=== PATIENT | female | born 1995 | race Caucasian/White ===

== ENCOUNTER 2020-01-19 14:03 | Outpatient (CLI) | payer OTHER, MEDICAID, SELFPAY ==
--- NOTE | 2020-01-19 14:15 | US_ITS ---
WS: [id number] US transvaginal [id number] REASON FOR EXAM: IUD placement FINDINGS: The uterus shows an enteral flexion along the endometrial stripe consistent with an IUD. Both ovaries show multiple's follicles the left ovary shows a cyst measures 1.32 x 1.0 x 1.18 cm The uterus measures 7.53 x 3.42 x 5.56 cm. The endometrium measures 0.19 cm.. IMPRESSION: Intrauterine device is seen along the mid endometrial stripe. The uterus is of normal size. Multiple follicles both ovaries with a small cyst of the left ovary.
== END 2020-01-19 14:04 | disposition home or self-care (01) ==
LOC: RAD 14:08
PROVIDERS: Family Provider Nurse Practitioner Family; Visit Provider Obstetrics & Gynecology
DX: T83.32XA Displacement of intrauterine contraceptive device, initial encounter (principal); X58.XXXA Exposure to other specified factors, initial encounter; N83.202 Unspecified ovarian cyst, left side
CPT/HCPCS: 76830

== ENCOUNTER → 2020-05-24 09:33 | Outpatient (BNVA) | payer OTHER, MEDICAID, SELFPAY | PROVIDERS: Family Provider Nurse Practitioner Family; Visit Provider Nurse Practitioner Women's Health | DX: N92.1 Excessive and frequent menstruation with irregular cycle (principal); Z97.5 Presence of (intrauterine) contraceptive device; R10.2 Pelvic and perineal pain | CPT/HCPCS: 84702; 87491; 87591; 87661 ==

== ENCOUNTER → 2020-06-07 09:44 | Outpatient (BNVA) | payer OTHER, MEDICAID, SELFPAY | PROVIDERS: Family Provider Nurse Practitioner Family; Visit Provider Nurse Practitioner Women's Health | DX: N91.2 Amenorrhea, unspecified (principal); N85.2 Hypertrophy of uterus | CPT/HCPCS: 76830 ==

== ENCOUNTER → 2020-10-31 13:37 | Outpatient (BNVA) | payer OTHER, MEDICAID, SELFPAY | PROVIDERS: Family Provider Nurse Practitioner Family; Visit Provider Obstetrics & Gynecology | DX: N92.1 Excessive and frequent menstruation with irregular cycle (principal); R10.2 Pelvic and perineal pain; Z97.5 Presence of (intrauterine) contraceptive device | CPT/HCPCS: 81025 ==

== ENCOUNTER → 2020-11-28 12:54 | Outpatient (BNVA) | payer OTHER, MEDICAID, SELFPAY | PROVIDERS: Family Provider Nurse Practitioner Family; Visit Provider Obstetrics & Gynecology | DX: Z34.80 Encounter for supervision of other normal pregnancy, unspecified trimester (principal) | CPT/HCPCS: 85025; 86850; 86900 ==

== ENCOUNTER → 2020-11-29 15:21 | Outpatient (BNVA) | payer OTHER, MEDICAID, SELFPAY | PROVIDERS: Family Provider Nurse Practitioner Family; Visit Provider Obstetrics & Gynecology | DX: O23.599 Infection of other part of genital tract in pregnancy, unspecified trimester (principal); N89.8 Other specified noninflammatory disorders of vagina; B96.89 Other specified bacterial agents as the cause of diseases classified elsewhere; O23.591 Infection of other part of genital tract in pregnancy, first trimester; Z3A.01 Less than 8 weeks gestation of pregnancy | CPT/HCPCS: 84315; 87491; 87591 ==

== ENCOUNTER → 2020-12-14 07:51 | Outpatient (BNVA) | payer OTHER, MEDICAID, SELFPAY | PROVIDERS: Family Provider Nurse Practitioner Family; Visit Provider Obstetrics & Gynecology | DX: O21.9 Vomiting of pregnancy, unspecified; Z3A.00 Weeks of gestation of pregnancy not specified | CPT/HCPCS: 82950; 84315 ==

== ENCOUNTER → 2021-01-02 12:05 | Outpatient (BNVA) | payer OTHER, MEDICAID, SELFPAY | PROVIDERS: Family Provider Nurse Practitioner Family; Visit Provider Obstetrics & Gynecology | DX: Z34.80 Encounter for supervision of other normal pregnancy, unspecified trimester (principal) | CPT/HCPCS: 80307; 81000; 86592; 86762; 86803; 87086; 87340; 87806; 88175 ==

== ENCOUNTER → 2021-01-31 13:40 | Outpatient (BNVA) | payer OTHER, MEDICAID, SELFPAY | PROVIDERS: Family Provider Nurse Practitioner Family; Visit Provider Nurse Practitioner Women's Health | DX: O09.299 Supervision of pregnancy with other poor reproductive or obstetric history, unspecified trimester (principal); Z3A.00 Weeks of gestation of pregnancy not specified | CPT/HCPCS: 82105; 84315 ==

== ENCOUNTER 2021-03-15 11:15 | Outpatient (CLI) | payer OTHER, MEDICAID, SELFPAY ==
[2021-03-15 11:38] VITALS: BP 127/78; PULSE 76; TEMP 36.4
[2021-03-15 11:52] VITALS: RESP 17
[2021-03-15 11:53] VITALS: BMI 28.0
== END 2021-03-15 12:05 | disposition home or self-care (01) ==
LOC: OPOB 11:20 → OBGYN 11:21
PROVIDERS: Family Provider Nurse Practitioner Family; Visit Provider Obstetrics & Gynecology
DX: O26.899 Other specified pregnancy related conditions, unspecified trimester (principal); Z3A.00 Weeks of gestation of pregnancy not specified; M54.9 Dorsalgia, unspecified
CPT/HCPCS: 99211

== ENCOUNTER → 2021-04-19 12:45 | Outpatient (BNVA) | payer OTHER, MEDICAID, SELFPAY | PROVIDERS: Family Provider Nurse Practitioner Family; Visit Provider Obstetrics & Gynecology | DX: Z34.80 Encounter for supervision of other normal pregnancy, unspecified trimester (principal) | CPT/HCPCS: 82950; 84315; 85027 ==

== ENCOUNTER → 2021-05-04 14:17 | Outpatient (BNVA) | payer OTHER, MEDICAID, SELFPAY | PROVIDERS: Family Provider Nurse Practitioner Family; Visit Provider Obstetrics & Gynecology | DX: O09.299 Supervision of pregnancy with other poor reproductive or obstetric history, unspecified trimester; Z3A.00 Weeks of gestation of pregnancy not specified | CPT/HCPCS: 84315; 87086 ==

== ENCOUNTER 2021-05-29 09:10 | Outpatient (CLI) | payer OTHER, MEDICAID, SELFPAY ==
[2021-05-29 09:10] VITALS: BMI 31.3
[2021-05-29 09:27] VITALS: BP 131/82; PULSE 92; TEMP 37.2
[2021-05-29 09:33] VITALS: RESP 17
[2021-05-29 09:43] VITALS: BP 130/82; PULSE 92
[2021-05-29 09:58] VITALS: BP 128/78; PULSE 94
[2021-05-29 10:56] LABS: Bilirubin Urine Neg (Negative); Blood Urine Neg (Negative); Glucose Urine UA Norm (Normal); Ketones Urine Negative (Negative); Leukocyte Esterase Urine Negative (Negative); Nitrate Urine Negative (Negative); Protein Urine Neg (Negative); Specific Gravity, Urine 1.015 (1.005-1.030); Sulfosalicylic Acid Urine Negative (Negative); Urine Appearance Clear (CLEAR); Urine Color Yellow (Yellow); Urobilinogen Urine Norm (Negative); pH Urine 8 (5-7)
[2021-05-29 11:04] LABS: Add Urine Culture? No; Bacteria Urine 1+ /hpf; RBC Urine 0-4 /hpf (0-2); Squamous Epithelial Cell Urine 15-25 /hpf (0-5)
== END 2021-05-29 10:22 | disposition home or self-care (01) ==
LOC: OPOB 09:22 → OBGYN 09:23
PROVIDERS: Family Provider Nurse Practitioner Family; Visit Provider Obstetrics & Gynecology
DX: O26.899 Other specified pregnancy related conditions, unspecified trimester (principal); Z3A.00 Weeks of gestation of pregnancy not specified; R10.9 Unspecified abdominal pain
CPT/HCPCS: 59025; 81001; 99211

== ENCOUNTER → 2021-06-14 12:36 | Outpatient (BNVA) | payer OTHER, MEDICAID, SELFPAY | PROVIDERS: Family Provider Nurse Practitioner Family; Visit Provider Obstetrics & Gynecology | DX: O99.119 Other diseases of the blood and blood-forming organs and certain disorders involving the immune mechanism complicating pregnancy, unspecified trimester (principal); D69.6 Thrombocytopenia, unspecified | CPT/HCPCS: 84315; 85027; 87081 ==

== ENCOUNTER 2021-06-23 15:36 | Outpatient (CLI) | payer OTHER, MEDICAID, SELFPAY ==
[2021-06-23] VITALS (9 sets, daily range): BP systolic 128–139; BP diastolic 84–93; PULSE 85–106; RESP 18; TEMP 36.9; BMI 31.6
[2021-06-23] MEDS: hyDROXYzine 25 mg Capsule 50 MG PO (16:29)
[2021-06-23] MEDS: cyclobenzaprine 10 mg Tablet PO (16:29)
[2021-06-23 16:43] LABS: Urine Color Straw (Yellow); pH Urine 7 (5-7)
[2021-06-23 16:44] LABS: Add Urine Culture? No; Amorphous Sediment Urine 1+ /hpf; Bacteria Urine 2+ /hpf; Bilirubin Urine Neg (Negative); Blood Urine Neg (Negative); Glucose Urine UA Norm (Normal); Ketones Urine Negative (Negative); Leukocyte Esterase Urine Negative (Negative); Mucus Urine TRACE /hpf; Nitrate Urine Negative (Negative); Protein Urine Neg (Negative); Specific Gravity, Urine 1.005 (1.005-1.030); Squamous Epithelial Cell Urine 15-25 /hpf (0-5); Urine Appearance SL Hazy (CLEAR); Urobilinogen Urine Norm (Negative); WBC Urine 0-4 /hpf (0-5)
== END 2021-06-23 17:30 | disposition home or self-care (01) ==
LOC: OPOB 15:42 → OBGYN 15:43
PROVIDERS: Family Provider Nurse Practitioner Family; Visit Provider Obstetrics & Gynecology
DX: O99.891 Other specified diseases and conditions complicating pregnancy (principal); M54.9 Dorsalgia, unspecified
CPT/HCPCS: 59025; 81001; 87086; 99211

== ENCOUNTER 2021-06-26 19:20 | Outpatient (CLI) | payer OTHER, MEDICAID, SELFPAY ==
[2021-06-26] VITALS (8 sets, daily range): BP systolic 130–145; BP diastolic 81–90; PULSE 89–106; TEMP 36.2; BMI 31.8
[2021-06-26 20:25] LABS: Actim Prom Negative
== END 2021-06-26 20:43 | disposition home or self-care (01) ==
LOC: OPOB 19:24 → OBGYN 19:25
PROVIDERS: Family Provider Nurse Practitioner Family; Visit Provider Obstetrics & Gynecology
DX: O99.891 Other specified diseases and conditions complicating pregnancy (principal); V89.2XXA Person injured in unspecified motor-vehicle accident, traffic, initial encounter; Z03.71 Encounter for suspected problem with amniotic cavity and membrane ruled out
CPT/HCPCS: 59025; 84112; 99211

== ENCOUNTER → 2021-06-27 09:56 | Outpatient (BNVA) | payer OTHER, MEDICAID, SELFPAY | PROVIDERS: Family Provider Nurse Practitioner Family; Visit Provider Obstetrics & Gynecology | DX: Z34.90 Encounter for supervision of normal pregnancy, unspecified, unspecified trimester (principal) | CPT/HCPCS: 80053; 82570; 84156; 84315; 84550; 85025 ==

== ENCOUNTER 2021-06-30 12:58 | Outpatient (CLI) | payer OTHER, MEDICAID, SELFPAY ==
[2021-06-30] VITALS (36 sets, daily range): BP systolic 130–142; BP diastolic 81–92; PULSE 81–107; RESP 18; O2SAT 97–100; BMI 31.3
--- NOTE | 2021-06-30 13:45 | US_ITS ---
WS: [id number] ULTRASOUND OB LIMITED TECHNIQUE: Limited ultrasound examination of the fetus. CLINICAL INFORMATION: High blood pressure COMPARISON: May 17, 2021 FINDINGS: Cervix measures 3.9 cm Single interuterine ges can tation. presentation is cephalic Placental location is anterior. Placenta grade: 1 heart rate 150 BPM. Normal MAGDALENA 10.8 cm Biophysical profile 8 out of 8. breathin movement: 2 tone: 2 Amniotic fluid: 2 IMPRESSION 1. Normal biophysical profile 8 out of 8 2. Cervix is long and closed measuring 3.9 cm. 3. Anterior placenta. 4. MAGDALENA 10.8 cm greater than the 5th percentile and less than the median.
[2021-06-30 14:36] LABS: Basophils # 0.1 10^3/uL (0.0-0.1); Basophils % 0.5 %; Eosinophils # 0.1 10^3/uL (0.0-0.8); Eosinophils % 0.6 %; Hematocrit 35.6 % (37.0-47.0); Hemoglobin 11.9 g/dL (11.5-15.3); Lymphocytes # 2.1 10^3/uL (0.8-4.8); Mean Corpuscular HGB Conc 33.4 g/dL (30.0-36.0); Mean Corpuscular Hemoglobin 30.9 pg (28.0-34.0); Mean Corpuscular Volume 92.5 fl (81-99); Mean Platelet Volume 13.4 fL (7.4-10.4); Monocytes # 1.1 10^3/uL (0.2-0.9); Monocytes % 8.7 %; Neutrophils # 9.14 10^3/uL (1.8-7.7); Neutrophils % 71.5 %; Nucleated Red Blood Cells % 0 %; Platelet Count 105 10^3/cmm (130-400); Red Blood Count 3.85 10^6/uL (4.1-5.3); Red Cell Distribution Width 13.2 % (12.1-15.1); White Blood Count 12.8 10^3/uL (4.0-10.0)
[2021-06-30 14:38] LABS: Add Urine Microscopic? NO; Charge for UA Resulting for Rev
[2021-06-30 14:47] LABS: Bilirubin Urine Neg (Negative); Blood Urine Neg (Negative); Glucose Urine UA Norm (Normal); Ketones Urine Negative (Negative); Leukocyte Esterase Urine Negative (Negative); Nitrate Urine Negative (Negative); Protein Urine Neg (Negative); Urine Appearance Clear (CLEAR); Urine Color Straw (Yellow); Urobilinogen Urine Norm (Negative); pH Urine 7 (5-7)
[2021-06-30 15:02] LABS: Alanine Aminotransferase 10 U/L (0-33); Albumin Level 3.4 g/dL (3.5-5.2); Alkaline Phosphatase 149 IU/L (35-105); Anion Gap 16.6 (5-19); Aspartate Amino Transferase 14 U/L (0-32); Blood Urea Nitrogen 5 mg/dL (6-20); Calcium 8.7 mg/dL (8.5-10.5); Carbon Dioxide 20 mmol/L (22-29); Chloride 102 mmol/L (98-107); Globulin 2.6 g/dL (1.3-4.6); Glomerular Filtration Rate 150.3 mL/min (90-130); Glucose 75 mg/dL (65-115); Osmolality Calculated 276 mOsm/kg (285-295); Potassium 3.6 mmol/L (3.5-5.1); Sodium 135 mmol/L (136-145); Total Bilirubin 0.3 mg/dL (0.15-1.2); Uric Acid 3.1 mg/dL (2.4-5.7)
[2021-06-30 15:04] LABS: Urine Creatinine 49 mg/dL (28-217); Urine Protein Random 6 mg/dL
[2021-06-30 15:10] LABS: UPRO/UCREAT Ratio 0.12 mg/mg CR
== END 2021-06-30 15:30 | disposition home or self-care (01) ==
LOC: OPOB 13:03 → OBGYN 13:10
PROVIDERS: Family Provider Nurse Practitioner Family; Visit Provider Obstetrics & Gynecology
DX: O16.9 Unspecified maternal hypertension, unspecified trimester (principal)
CPT/HCPCS: 36415; 59025; 76819; 80053; 81003; 82570; 84156; 84550; 85025; 99211

== ENCOUNTER 2021-07-01 11:49 | Inpatient (IN) | payer OTHER, MEDICAID, SELFPAY ==
[2021-07-01] VITALS (46 sets, daily range): BP systolic 120–167; BP diastolic 65–103; PULSE 80–118; RESP 16–18; TEMP 36.2–36.8; BMI 32.5
[2021-07-01 09:59] LABS: Actim Prom Positive
[2021-07-01] MEDS: miSOPROStol 100 mcg tablet 25 MCG VAGINAL ×2 (10:25→15:38)
[2021-07-01] MEDS: dextrose 5%-lactated ringers 1,000 ML 125 ML IV (10:25)
[2021-07-01 10:33] LABS: Basophils # 0.1 10^3/uL (0.0-0.1); Basophils % 0.5 %; Eosinophils # 0.1 10^3/uL (0.0-0.8); Eosinophils % 0.6 %; Hematocrit 35.4 % (37.0-47.0); Hemoglobin 11.6 g/dL (11.5-15.3); Lymphocytes % 15.7 %; Mean Corpuscular HGB Conc 32.8 g/dL (30.0-36.0); Mean Corpuscular Hemoglobin 30.8 pg (28.0-34.0); Mean Corpuscular Volume 93.9 fl (81-99); Mean Platelet Volume 13.5 fL (7.4-10.4); Monocytes % 7.8 %; Neutrophils # 9.27 10^3/uL (1.8-7.7); Neutrophils % 71.5 %; Nucleated Red Blood Cells % 0 %; Platelet Count 95 10^3/cmm (130-400); Red Blood Count 3.77 10^6/uL (4.1-5.3); Red Cell Distribution Width 13.1 % (12.1-15.1)
[2021-07-01 10:50] LABS: Urine Creatinine 65 mg/dL (28-217)
[2021-07-01 10:51] LABS: UPRO/UCREAT Ratio 0.57 mg/mg CR; Urine Protein Random 37 mg/dL
[2021-07-01 10:54] LABS: Alanine Aminotransferase 9 U/L (0-33); Albumin Level 3.3 g/dL (3.5-5.2); Alkaline Phosphatase 146 IU/L (35-105); Anion Gap 19.3 (5-19); Aspartate Amino Transferase 13 U/L (0-32); Blood Urea Nitrogen 4 mg/dL (6-20); Calcium 8.1 mg/dL (8.5-10.5); Carbon Dioxide 18 mmol/L (22-29); Chloride 103 mmol/L (98-107); Globulin 2.5 g/dL (1.3-4.6); Glomerular Filtration Rate 150.3 mL/min (90-130); Glucose 103 mg/dL (65-115); Osmolality Calculated 281 mOsm/kg (285-295); Potassium 3.3 mmol/L (3.5-5.1); Sodium 137 mmol/L (136-145); Total Bilirubin 0.2 mg/dL (0.15-1.2); Total Protein 5.8 g/dL (6.6-8.7); Uric Acid 3.3 mg/dL (2.4-5.7)
[2021-07-01 10:58] LABS: Add Urine Microscopic? YES; Bilirubin Urine Neg (Negative); Blood Urine 2+ (Negative); Glucose Urine UA Norm (Normal); Ketones Urine Negative (Negative); Leukocyte Esterase Urine 2+ (Negative); Nitrate Urine Negative (Negative); Protein Urine Trace (Negative); RBC Urine 0-4 /hpf (0-2); Urine Appearance Cloudy (CLEAR); Urine Color Yellow (Yellow); Urobilinogen Urine Norm (Negative); pH Urine 7 (5-7)
[2021-07-01 10:59] LABS: Add Urine Culture? No; Bacteria Urine 2+ /hpf; Mucus Urine TRACE /hpf; Squamous Epithelial Cell Urine TOO NUMEROUS TO CNT /hpf (0-5); WBC Urine 55-80 /hpf (0-5)
[2021-07-01 11:40] LABS: Urine Creatinine 46 mg/dL (28-217); Urine Protein Random 13 mg/dL
[2021-07-01 11:45] LABS: UPRO/UCREAT Ratio 0.28 mg/mg CR
--- NOTE | 2021-07-01 12:32 | PM.OPHPUD ---
Labor & Delivery H&P Update Date of Procedure: July 01, 2021 Date H&P Performed: 06/27/21 H&P update information: I have reviewed H&P completed within last 30 days and No changes to prior documentation (except rupture of membranes) Admission Diagnosis:
[2021-07-01] MEDS: oxytocin 30 UNIT/500 ML BAG 600 UNIT IV (20:18)
--- NOTE | 2021-07-01 20:23 | PM.DELIVERY ---
Delivery Note: Date of delivery: July 01, 2021 Pre-delivery diagnoses: Term . Premature rupture of membranes. Hypertension in Procedure: Spontaneous vaginal delivery Op report anesthesia: None Delivering Physician: Myron Posey MD Estimated blood loss (mL): 300 Findings: Type of delivery: Spontaneous vaginal delivery complicated by shoulder dystocia resolved with the Edmund maneuver. Baby girl. Apgars: 8/9. weight: 3825 g. EBL: 300. Lacerations: None. Delivery: The patient was noted to be complete and pushing, so was placed in the dorsal lithotomy position, prepped and draped in the usual sterile fashion for a vaginal delivery. Pt. Noted to have no epidural anesthesia. At 2010 the patient delivered a viable 38 weeks 4 days female infant weighing 3825 g with scores of 8 and 9 at one and five minutes, respectively. The patient was asked to push and the head delivered spontaneously in the REMEDIOS position, over an intact perineum. After delivery of the head we were unable to deliver the anterior shoulder by applying moderate downward motion. Help was called for a shoulder Dystocia. Edmund, suprapubic pressure and anterior shoulder disimpaction were all immediately attempted and unsuccessful in delivering the shoulders. A nuchal cord was checked and none was noted. The remainder of the infant was easily delivered and the oropharynx and nasopharynx was bulb suctioned. The infant was noted to have spontaneous cry and spontaneous movement of all four extremities. The cord was clamped x 2 and cut and noted to have 2 arteries and one vein. The was passed to the mother's abdomen where the supervisor hanging and trimming and nursing personnel were in attendance. The placenta delivered intact spontaneously and the uterus was explored. 20 units of Pitocin was placed in the IV bag to firm the uterus. Examination of the cervix and vaginal vault did not reveal any lacerations. A vaginal pack was then placed. Examination of the perineum showed no lacerations. The vaginal pack was then removed. The patient tolerated this procedure well, and recovered in L&D with her infant [or note if infant taken to NICU]. All sponge and needle counts were correct. History History History 3 Term 2 Miscarriages/Ectopic 0 0 Living Children 2 A&P Assessment and plan (1) Term delivered: Status: Acute (2) Elevated blood pressure affecting , antepartum: Status: Acute (3) Thrombocytopenia affecting , antepartum: Status: Acute Coding Level of Care Code Acute Drip Molder for Chg Fwd Diagnoses Term delivered O80 Elevated blood pressure affecting , antepartum O16.9 Thrombocytopenia affecting , antepartum O99.119; D69.6
[2021-07-01] MEDS: ibuprofen 800 mg tablet PO (23:57)
[2021-07-02] VITALS (12 sets, daily range): BP systolic 114–171; BP diastolic 66–106; PULSE 82–105; RESP 16; TEMP 36.2–37.1
[2021-07-02 10:08] LABS: Hematocrit 37.2 % (37.0-47.0); Hemoglobin 12.4 g/dL (11.5-15.3); Mean Corpuscular HGB Conc 33.3 g/dL (30.0-36.0); Mean Corpuscular Hemoglobin 31.4 pg (28.0-34.0); Mean Corpuscular Volume 94.2 fl (81-99); Mean Platelet Volume 13.3 fL (7.4-10.4); Platelet Count 114 10^3/cmm (130-400); Red Blood Count 3.95 10^6/uL (4.1-5.3); Red Cell Distribution Width 13.1 % (12.1-15.1); White Blood Count 19.8 10^3/uL (4.0-10.0)
[2021-07-02] MEDS: ibuprofen 800 mg tablet PO ×2 (10:19→15:17)
[2021-07-02] MEDS: prenatal vitamin Capsule 1 CAP PO (10:19)
[2021-07-02] MEDS: docusate sodium 100 mg Capsule PO (10:20)
--- NOTE | 2021-07-02 10:59 | P.DS_ITS ---
Discharge Providers [employer]PARER APPRENTICE Date of Admission: 07/01/21 11:49 Date of Discharge: 07/02/21 Attending Provider at Admission: Myron Posey MD Attending Provider at Discharge: Myron Posey MD Diagnoses at Discharge Discharge Diagnosis (1) Term delivered: Status: Acute (2) Elevated blood pressure affecting , antepartum: Status: Acute (3) Thrombocytopenia affecting , antepartum: Status: Acute Reason for Visit Reason for Visit: POSSIBLE RUPTURE OF MEMBRANES Hospital Course Hospital Course Ms. Matthew is a 26 year old with an LMP of 09/27/2020 and an EDC of 07/11/2021 dated by 7 week ultrasound, placing her at 38 4/7 weeks today. day 1, came to labor and delivery complaining of membrane rupture. Premature ruptured of membrane was confirmed and she was admitted. She developed hypertension during labor, preeclampsia work-up was negative. care was complicated by thrombocytopenia and she had been scheduled for induction next week. Cytotec was given for cervical ripening, and she progressed without epidural to have a spontaneous vaginal delivery complicated by shoulder dystocia resolved by Edmund'maneuver with suprapubic pressure. She delivered a female infant Apgars 8/9, with a birthweight of 3825 g. observation uneventful. She is afebrile and hemodynamically stable. Tolerating diet well. Ambulating without difficulty. Information Peripartum Data: Delivery Method: Vaginal Physical Exam Narrative: EXAM NARRATIVE: GA; alert and oriented x 3 HEENT: normal Breasts: engorged Nipples - skin intact Lungs; clear to auscultation Heart: regular rhythm, no murmurs. Abd: Appropriately tender. BS+. Uterine fundus below umbilicus. No Fundal Tenderness. Perineum: normal lochia. Extremities: no edema, no cyanosis, no tenderness. History History History 3 Term 2 Miscarriages/Ectopic 0 0 Living Children 2 Discharge Data Data Completed and Pending: Labs from last 24 hours 07/02/21 07/01/21 07/01/21 09:35 11:20 10:15 WBC 19.8 H RBC 3.95 L Hgb 12.4 Hct 37.2 MCV 94.2 MCH 31.4 MCHC 33.3 RDW 13.1 Plt Count 114 L MPV 13.3 H Urine RBC 0-4 H Urine WBC 55-80 H Ur Squamous Epith Cells Too numerous to c nt H Amorphous Sediment Not Reportable Urine Bacteria 2+ H Urine Mucus Trace U Random Total Pro tein 13 Urine Creatinine 46 Protein/Creatinin Ratio 0.28 Vitals: Last Vital Signs Temp 98.8 F 07/02/21 02:45 Pulse 100 07/02/21 10:21 Resp 18 07/01/21 11:51 BP 119/87 07/02/21 10:21 Discharge Plan Discharge Patient Disposition: Home Condition: Stable Prescriptions: New acetaminophen 325 mg capsule 325 mg PO Q4H PRN (Reason: fever or pain) Qty: 60 RF: 0 ibuprofen 800 mg tablet 800 mg PO TID PRN (Reason: pain) Qty: 60 RF: 0 Colace 100 mg capsule 100 mg PO BID Qty: 60 RF: 0 Continued prenat.vits,jono,[id number] Tablet 1 tab PO DAILY RF: 0 Discharge Orders: Discharge Order (Routine); Ordered 07/02/21 Ordered By: Myron Posey Referrals: Jessi Greene MD [Physician] - 6 Weeks Discharge Diet: Usual diet Discharge Activity: Increase activity as tolerated Patient Instructions: Caring for Your Baby (GEN), Bleeding (DC), Shoulder Dystocia (GEN), Vaginal Delivery (GEN), Your [place]'s Appearance (GEN), Opioid Safety Activity Restrictions/Additional Instructions: 1. Please call [facility] on next working day to make your appointment in 6 weeks. 2. Please stay home until you come back to the clinic on first post-operative check up. 3. Please follow instructions on your medications CAREFULLY. 4. If you have abdominal incision, do not cover it unless dressing is necessary because of drainage. OK to shower, but avoid bath. Leave steri-strips until they fall off. If they are still on one week after surgery, you may remove them. 5. If you had vaginal surgery or vaginal repair, Dr. Posey may instruct you to take SITZ bath. 6. Yellow, blood tinged odorous vaginal discharge is usually normal after hysterectomy or vaginal surgeries. 7. No sexual intercourse, tampons, or douches until you are completely released from the post-operative care. 8. Avoid constipation by eating right and maybe using some Metamucil or Milk of Magnesia. 9. All prescription refills are given during the working hours. Please do no wait till it runs out. Call the clinic at [phone] before your medication runs out. The clinic will get in touch with your doctor to prescribe medications if necessary. 10. Please remain within 40 mile radius from our hospital because emergencies do happen now and then during the post-operative period. 11. If you have stairs at home, take one step at a time slowly and minimize the number of trips. It helps to stay in one floor for the next few days. No lifting except what you can lift by one hand until you are released from the post-operative care. 12. Driving is discouraged until you are well healed. It may be 3-4 weeks before you feel strong enough to drive. You should be able to turn and look through the rear window without pain and you should be able to push the brake pedal very hard without pain before you drive. No fast rules, but SAFETY should be your primary concern. DO NOT drive if you are on sedating medications such as narcotics. 13. Call the clinic (during working hours) to make urgent appointment or go to the Emergency room, if any of the following occurs: i. Vaginal bleeding becomes heavy, more than a period. ii. Incision becomes red and sore, or drains pus. iii. Your temperature is over 100.4 or you have chill. iv. IV site becomes red and swollen (a little ``knot?? is usually OK) v. Persistent nausea and vomiting vi. Persistent constipation or diarrhea vii. Rash or allergic reaction to medications. Discharge Attestations [employer] PREPARER APPRENTICE Time Spent in Discharge Care*: greater than 30 min Coding Level of Care Code Acute Hot Dimpling Machine Operator for Chg Fwd Diagnoses Term delivered O80 Elevated blood pressure affecting , antepartum O16.9 Thrombocytopenia affecting , antepartum O99.119; D69.6
== END 2021-07-02 21:00 | disposition home or self-care (01) | DRG 806 ==
LOC: OPOB 11:50 → OBGYN 11:50
PROVIDERS: Absent Provider Obstetrics & Gynecology; Admitting Provider Obstetrics & Gynecology; PCP Nurse Practitioner Family; Visit Provider Obstetrics & Gynecology
DX: O16.4 Unspecified maternal hypertension, complicating childbirth (principal); O99.12 Other diseases of the blood and blood-forming organs and certain disorders involving the immune mechanism complicating childbirth; Z37.0 Single live birth; D69.6 Thrombocytopenia, unspecified; Z3A.38 38 weeks gestation of pregnancy; O66.0 Obstructed labor due to shoulder dystocia; Z87.59 Personal history of other complications of pregnancy, childbirth and the puerperium
CPT/HCPCS: 36415; 59025; 59409; 80053; 81001; 82570; 84112; 84156; 84550; 85025; 85027; 99211

== ENCOUNTER → 2021-08-08 11:18 | Outpatient (BNVA) | payer OTHER, MEDICAID, SELFPAY | PROVIDERS: PCP Nurse Practitioner Family; Visit Provider Obstetrics & Gynecology | DX: Z30.430 Encounter for insertion of intrauterine contraceptive device (principal) | CPT/HCPCS: 81025 ==

== ENCOUNTER → 2022-05-09 11:27 | Outpatient (BNVA) | payer MEDICAID, SELFPAY | PROVIDERS: PCP Nurse Practitioner Family; Visit Provider Obstetrics & Gynecology | DX: R39.9 Unspecified symptoms and signs involving the genitourinary system (principal) | CPT/HCPCS: 81000; 87077; 87086; 87184 ==

== ENCOUNTER → 2024-11-02 14:57 | Outpatient (BNVA) | payer MEDICAID, SELFPAY | PROVIDERS: PCP Nurse Practitioner Family; Visit Provider Specialist | DX: M25.562 Pain in left knee (principal) | CPT/HCPCS: 73560; 73565 ==

== ENCOUNTER 2024-11-12 14:26 | Outpatient (CLI) | payer MEDICAID, SELFPAY ==
--- NOTE | 2024-11-12 14:30 | MR_ITS ---
WS: [id number] MRI LEFT KNEE HISTORY: left knee pain COMPARISON: Radiograph 11/02/2024 Anterior cruciate ligament: Intact. Posterior cruciate ligament: Intact. Medial collateral ligament: Intact. Posterior lateral corner structures: Intact. Medial menisci: Intact. Normal signal, size and shape. Lateral meniscus: Intact. Normal signal, size and shape. Extensor mechanism: Mild tendinopathy of the distal quadriceps tendon. No tear. Normal patellar tendon. Fluid and soft tissue: No joint effusion. No Gonzalez's cyst. Osseous and articular structures: Patellofemoral compartment: Normal. Medial compartment: Lateral compartment: MR/MR knee LT wo con* [id number] IMPRESSION: Unremarkable MRI LEFT knee. No ACL or meniscal tear. No marrow edema. Minimal tendinopathy distal quadriceps tendon.
== END 2024-11-12 14:27 | disposition home or self-care (01) ==
PROVIDERS: PCP Nurse Practitioner Family; Visit Provider Specialist
DX: M25.562 Pain in left knee (principal); R93.6 Abnormal findings on diagnostic imaging of limbs; M67.864 Other specified disorders of tendon, left knee
CPT/HCPCS: 73721

== ENCOUNTER → 2025-07-21 15:56 | Outpatient (BNVA) | payer MEDICAID, SELFPAY | PROVIDERS: PCP Nurse Practitioner Family; Visit Provider Obstetrics & Gynecology | DX: Z01.419 Encounter for gynecological examination (general) (routine) without abnormal findings (principal) | CPT/HCPCS: 87624 ==